=== PATIENT | male | born 1950 | race Caucasian/White ===

== ENCOUNTER → 2017-04-03 | Outpatient (CLI) | payer MEDICARE ==
[2017-04-03 10:00] LABS: EKG EKG PERFORMED
[2017-04-03 10:44] LABS: Basophils # (A) 0.1 k/uL (0-0.2); Basophils % (A) 1 %; CH 30.9; CHCM 32.8; Eosinophils # (A) 0.3 k/uL (0-0.7); Eosinophils % (A) 4 %; HCT 45.5 % (39.0-53.0); HGB 15.3 gm/dL (13.0-17.5); Luc # (Auto) 0.23; Luc % (Auto) 3; Lymphocytes # (A) 1.8 k/uL (1.0-4.8); Lymphocytes % (A) 19 %; MCH 31.8 pg (25.0-35.0); MCHC 33.5 g/dL (31.0-37.0); MCV 94.8 fL (80.0-100.0); Mean Platelet Volume 8.2; Monocytes # (A) 0.4 k/uL (0-1.0); Monocytes % (A) 5 %; Neutrophils # (A) 6.5 k/uL (1.3-7.7); Neutrophils % (A) 69 %; RDW 14.3 % (11.5-15.5); WBC 9.3 k/uL (3.8-10.6); WBC (Perox) 9.18
[2017-04-03 11:15] LABS: ALT 37 U/L (21-72); AST 29 U/L (17-59); Alkaline Phosphatase 113 U/L (38-126); Anion Gap 16 mmol/L; Blood Urea Nitrogen 38 mg/dL (9-20); Carbon Dioxide 19 mmol/L (22-30); Chloride 105 mmol/L (98-107); Glucose 161 mg/dL (74-99); Non-African American GFR(MDRD) 44 (>60 ml/min/1.73 sqM); Potassium 4.8 mmol/L (3.5-5.1); Sodium 140 mmol/L (137-145); Total Bilirubin 0.7 mg/dL (0.2-1.3); Total Protein 7.5 g/dL (6.3-8.2)
== END | disposition home or self-care (01) ==
LOC: LABPAT 09:50
PROVIDERS: ATTEND Anesthesiology
DX: C18.9 Malignant neoplasm of colon, unspecified (principal)
CPT/HCPCS: 80053; 82378; 85025; 93005

== ENCOUNTER 2017-04-05 08:37 | Inpatient (IN) | payer MEDICARE ==
--- NOTE | 2017-03-14 09:26 | HP ---
DATE OF ADMISSION: CHIEF COMPLAINT: Sigmoid colon cancer. HISTORY OF PRESENT ILLNESS: Patient is a 66-year-old male who is known to our service from previous bariatric evaluation. He was having complaints of frequent diarrhea for the last 6 months or so and started noticing rectal bleeding following that. Patient had a colonoscopy done in late January by Dr. Baxter and was found to have a mass at 24 to 28 cm, biopsy-proven moderately differentiated adenocarcinoma. Patient had a CAT scan performed at [facility] as well which did show with the malignancy without evidence of distant metastasis. Past medical history is arthritis, asthma, diabetes, hypertension, obesity. Past surgical history is hemorrhoidectomy, ablation. MEDICATIONS: See list. ALLERGIES: None. PHYSICAL EXAM: GENERAL: Well-developed, well-nourished, obese male in no distress. HEENT is normocephalic. Sclerae is nonicteric. CHEST: No deformities. ABDOMEN: Soft, nontender, nondistended. No palpable hernias. IMPRESSION: A 66-year-old male with newly diagnosed sigmoid colon cancer. PLAN: Will proceed with elective sigmoid colectomy on 04/05. The risks of bleeding, infection, anastomotic dehiscence, possible need for end or diverting ostomy, bladder or ureteral injury, bowel injury, hernia, wound infection, abscess, respiratory or cardiac complications. The patient understands and wishes to proceed.
[2017-04-02 11:41] VITALS: BMI 39.9
[~2017-04-05 08:37] MED LIST: ALVIMOPAN 12 MG CAPSULE PO ONE; DEXAMETHASONE SOD PHOSPHATE 10 MG/ML 1 ML VIAL IV ONE; HEPARIN SODIUM,PORCINE 5,000 UNIT/ML 1 ML VIAL SQ ONE; HYDROmorphone 1 MG/ML 1 ML SYRINGE IVP PRN; MIDAZOLAM 2 MG/2 ML VIAL IV PRN; ONDANSETRON 4 MG/2 ML VIAL IVP ONE; ceFAZolin 3 GM in SODIUM CHLORIDE 0.9% 100 ML IVPB ONE; metroNIDAZOLE-NS PMX 500 MG in SALINE 1 100ML.BAG IVPB ONE
[2017-04-05] MEDS ORDERED: LIDOCAINE 1% 20 ML VIAL (10MG/ML) FOR IV START SQ ONE (11:45)
[2017-04-05] MEDS: LACTATED RINGERS 1,000 ML IV SCH ×2 (11:45→18:32)
[2017-04-05 11:52] LABS: Glucose,Whole Blood 170 mg/dL (75-99)
[2017-04-05] MEDS ORDERED: ONDANSETRON 4 MG/2 ML VIAL IVP PRN (12:44)
[2017-04-05] MEDS ORDERED: diphenhydrAMINE 50 MG/ML 1 ML VIAL IVP PRN (12:44)
[2017-04-05] MEDS ORDERED: NALOXONE 0.4 MG/ML 1 ML VIAL IV PRN (12:44)
[2017-04-05] MEDS ORDERED: PROPOFOL 10 MG/ML 20 ML VIAL IV ONE (13:20)
[2017-04-05] MEDS ORDERED: NEOSTIGMINE 1 MG/ML 10 ML VIAL ONE (13:20)
[2017-04-05] MEDS ORDERED: MIDAZOLAM 2 MG/2 ML VIAL ONE (13:20)
[2017-04-05] MEDS ORDERED: SUCCINYLCHOLINE CHLORIDE 100 MG/5 ML SYR IV ONE (13:20)
[2017-04-05] MEDS ORDERED: ROCURONIUM BROMIDE 10 MG/ML 10 ML VIAL IV ONE (13:20)
[2017-04-05] MEDS ORDERED: LIDOCAINE 1% INJ 10MG/ML (20 ML MDV) ONE (13:20)
[2017-04-05] MEDS ORDERED: GLYCOPYRROLATE 0.2 MG/ML 2 ML VIAL ONE (13:20)
[2017-04-05] MEDS ORDERED: ePHEDrine 50 MG/ML 1 ML AMP ONE (13:20)
[2017-04-05] MEDS ORDERED: fentaNYL (PF) 50 MCG/ML 2 ML AMP ONE (13:20)
[2017-04-05] MEDS ORDERED: LACTATED RINGERS 1,000 ML IV ONE (15:15)
[2017-04-05] MEDS: BUPIVACAINE (PF) 0.5% 37.5 ML, HYDROMORPHONE (PF) 5 MG in SODIUM CHLORIDE 0.9% 212 ML EPIDURAL PRN ×2 (16:31→17:39)
[2017-04-05] MEDS ORDERED: HYDROmorphone 1 MG/ML 1 ML SYRINGE IVP PRN (16:36)
[2017-04-05] MEDS ORDERED: METOCLOPRAMIDE 5 MG/ML 2 ML VIAL IVP PRN (16:36)
--- NOTE | 2017-04-05 16:42 | P.OP ---
Date of Procedure: 04/05/17 Preoperative Diagnosis: Postoperative Diagnosis: Procedure(s) Performed: PREOPERATIVE DIAGNOSIS: Sigmoid colon cancer POSTOPERATIVE DIAGNOSIS: Sigmoid colon cancer PROCEDURE: Low anterior sigmoid resection SURGEON: Adis EBL: 180 mL ANESTHESIA: General COMPLICATIONS: None OPERATIVE PROCEDURE: Patient place in the operative table in the supine position. The patient was placed under general anesthesia. The patient was then placed in lithotomy. The abdomen was prepped and draped in usual sterile fashion. A vertical incision was made extending from the suprapubic pubic location to the supraumbilical location. The fascia was divided as well. The Bookwalter retractor was utilized. The patient's abdominal girth was very impressive. The extra long retractors were utilized throughout this case. The Bookwalter extension was utilized as well. The sigmoid colon was fully mobilized by incising the white line of Toldt. The left and right ureters were both identified and preserved. The sigmoid colon was divided proximally using a linear 75 stapler. The mesentery was divided using the LigaSure device. Larger vessels were divided using [address] down to the proximal rectum where the tenia was noted to splay out. The mass was present in the distal sigmoid colon approximately 8 cm from the rectum. The proximal rectum was divided using the contour stapler. The specimen was passed off the field at that point. The proximal staple line was dissected of any surrounding fat. The pursestring adapter was utilized. The staple line itself was then removed. Sizers were utilized. The 29 EEA was chosen. The anvil was advanced into the lumen of the bowel and the pursestring was tied down. The stapler was then inserted into the anus and brought up to the staple line. The obturator was brought out just anterior to the staple line. The 2 portions of the stapler were connected to one another and subsequently tightened and fired. The bowel was clamped proximal to the anastomosis. The rigid sigmoidoscope was utilized to fill the anastomotic site nicely with air. There was saline in the pelvis at this time. No evidence of leak was seen. The abdomen was irrigated with saline. The liver, stomach, visualized colon, and small bowel appeared normal. The midline fascia was then reapproximated using 2 separate double-stranded #1 PDS suture. The subcutaneous tissues were closed using 2-0 Vicryl sutures. The skin was then closed using rich. Sterile dressings were then applied. DISPOSITION: Stable to recovery room Implants: Indications for Procedure: Operative Findings: Description of Procedure:
[2017-04-05 17:20] LABS: Glucose,Whole Blood 173 mg/dL (75-99)
[2017-04-05] MEDS: INSULIN LISPRO (humaLOG) 300 UNIT/3 ML VIAL SQ SCH ×2 (18:34→21:13)
[2017-04-05] MEDS: IPRATROPIUM-ALBUTEROL 3 ML NEB INHALATION SCH (21:07)
[2017-04-05 21:08] LABS: Glucose,Whole Blood 203 mg/dL (75-99)
[2017-04-05] MEDS: ATORVASTATIN 20 MG TAB PO SCH (21:23)
[2017-04-05] MEDS: D5-0.45% NACL WITH KCL 20MEQ/L 1,000 ML IV SCH ×2 (21:23→23:25)
[2017-04-05] MEDS: FAMOTIDINE 20 MG/2 ML VIAL IV SCH (21:23)
[2017-04-05] MEDS: ATENOLOL 50 MG TAB PO SCH (21:23)
[2017-04-05] MEDS: HEPARIN SODIUM,PORCINE 5,000 UNIT/ML 1 ML VIAL SQ SCH (23:25)
[2017-04-06] MEDS: LACTATED RINGERS 1,000 ML IV SCH ×4 (05:13→23:31)
--- NOTE | 2017-04-06 06:54 | CONS ---
DATE OF CONSULTATION: CHIEF COMPLAINT: Medical re-evaluation. HISTORY OF PRESENT ILLNESS: This is a 66-year-old gentleman who was admitted to the hospital and undergone partial colectomy for sigmoid malignancy. The patient was evaluated in the outpatient for diarrhea and some blood in the stool. He has been noted to have evidence of a malignancy. CAT scan did not reveal any lymphadenopathy. The patient in view of this underwent surgery. He has significant COPD and has had previous history of atrial fibrillation, which has been well controlled. The patient is also moderately obese. The patient otherwise feels relatively well. Post surgery, his pain is adequately controlled. Past medical history is significant for history of hypertension on medical therapy, history of atrial fibrillation, rapid ventricular rate is controlled, history of COPD and history of diabetes mellitus. The patient also has moderate obesity. Past surgical history is significant for hemorrhoidectomy and previous ablation for atrial fibrillations. PERSONAL HISTORY: Patient has been a smoker for many years. Alcohol none. ALLERGIES: None reported. Medications at home includes: Metformin 1000 mg daily, Zantac 150 mg q. daily, losartan hydrochlorothiazide 100/25 one daily, Breo 100/25 one puff daily. Lipitor 20 mg daily. Atenolol 50 mg b.i.d., aspirin 81 mg daily, Tylenol Arthritis 650 mg 2 tabs b.i.d., Xanax 0.5 mg p.r.n. t.i.d. SOCIAL HISTORY: The patient is , lives alone. FAMILY MEDICAL HISTORY: One brother who has a history of atrial fibrillation and degenerative arthritis. The patient has 2 sons in good health. REVIEW OF SYSTEMS: NEURO: Denies any headaches, dizziness. No double vision, blurred vision. No symptoms of TIA, syncope, seizures. PSYCH: No anxiety, depression. CARDIAC: No chest pain, angina, palpitations. RESPIRATORY: Chronic shortness of breath, chronic cough. No hemoptysis. GI: No nausea, vomiting and some abdominal pain when he coughs. : No symptoms. Has an IDC. EXTREMITIES: Denies pain or edema. CONSTITUTIONAL: No fever or chills. HEMATOLOGICAL: No anemia or bleeding disorder. ENDOCRINE: History of diabetes mellitus, adequately controlled. PHYSICAL EXAMINATION: At present, vital signs reveal blood pressure was 121/65, pulse rate of 78, respirations 20, pulse ox 94% on 2 L. HEENT: Normocephalic. NECK: No JVD. CHEST EXAMINATION: Clear to auscultation with generalized decreased air flow. CARDIAC: Distant heart sounds. S1, S2 with no gallops. Systolic murmur 2/6 left sternal border. ABDOMEN: Protuberant, tender. Bowel sounds absent. Extremities reveal no edema. No tenderness. NEUROLOGIC: Awake, alert, oriented with well coordinated movements in both upper extremities. The patient moves lower extremities spontaneously too. LABORATORY ASSESSMENT: Blood sugars which are adequately covered. Potassium was 4.7. ASSESSMENT: 1. Diabetes mellitus, adequately controlled. 2. Chronic obstructive pulmonary disease. 3. History of atrial fibrillation, post ablation, controlled. 4. Cancer of the colon. 5. Obesity. 6. Hypertension. PLAN: Continue present medical regimen. The patient's hydrochlorothiazide losartan will be held. Will continue Tenormin. Monitor CBC. Patient's prognosis remains guarded. Condition discussed with the patient.
[2017-04-06 07:02] LABS: Glucose,Whole Blood 180 mg/dL (75-99)
[2017-04-06] MEDS: HEPARIN SODIUM,PORCINE 5,000 UNIT/ML 1 ML VIAL SQ SCH ×3 (07:07→23:30)
[2017-04-06 07:41] LABS: Basophils % (A) 0 %; CH 31.3; CHCM 33.7; Eosinophils % (A) 0 %; HCT 40.5 % (39.0-53.0); HDW 2.68; HGB 13.6 gm/dL (13.0-17.5); Luc # (Auto) 0.17; Luc % (Auto) 2; Lymphocytes # (A) 1.1 k/uL (1.0-4.8); Lymphocytes % (A) 9 %; MCH 31.4 pg (25.0-35.0); MCHC 33.6 g/dL (31.0-37.0); MCV 93.4 fL (80.0-100.0); Mean Platelet Volume 7.9; Monocytes # (A) 0.9 k/uL (0-1.0); Monocytes % (A) 8 %; Neutrophils # (A) 9.4 k/uL (1.3-7.7); Neutrophils % (A) 82 %; RBC 4.34 m/uL (4.30-5.90); RDW 14.2 % (11.5-15.5); WBC 11.5 k/uL (3.8-10.6); WBC (Perox) 10.82
[2017-04-06 07:55] LABS: Calcium 9.1 mg/dL (8.4-10.2); Potassium 5.1 mmol/L (3.5-5.1)
[2017-04-06] MEDS: INSULIN LISPRO (humaLOG) 300 UNIT/3 ML VIAL SQ SCH ×4 (07:58→20:55)
[2017-04-06] MEDS: ATENOLOL 50 MG TAB PO SCH ×2 (08:01→20:54)
[2017-04-06] MEDS: ALVIMOPAN 12 MG CAPSULE PO SCH ×2 (08:01→20:54)
[2017-04-06] MEDS: FAMOTIDINE 20 MG/2 ML VIAL IV SCH ×2 (08:01→20:53)
[2017-04-06] MEDS: ASPIRIN 81 MG CHEW PO SCH (08:01)
[2017-04-06 08:44] LABS: Hemoglobin A1C 6.8 % (4.2-6.1)
[2017-04-06] MEDS: IPRATROPIUM-ALBUTEROL 3 ML NEB INHALATION SCH ×4 (09:02→21:06)
[2017-04-06] MEDS: D5-0.45% NACL WITH KCL 20MEQ/L 1,000 ML IV SCH ×3 (09:25→23:30)
--- NOTE | 2017-04-06 11:36 | P.PN ---
Subjective Principal diagnosis: Colon cancer Patient doing well today. Mild discomfort. Some leg numbness. Creatinine slightly elevated from baseline. White blood cell count 11.5 hemoglobin stable at 13.6. Objective - Vital Signs Vital signs: Vital Signs Temp 98.9 F 04/05/17 23:00 Pulse 88 04/06/17 09:13 Resp 14 04/06/17 07:13 BP 106/66 04/05/17 23:00 Pulse Ox 92 L 04/06/17 09:03 Intake & Output 04/05/17 04/06/17 04/06/17 18:59 06:59 18:59 Intake Total 2913.6 600 600 Output Total 455 300 Balance 2458.6 300 600 Intake: IV 2913.6 Oral 600 600 Output: Urine 275 300 Estimated Blood Loss 180 Other: Voiding Method Indwelling Catheter Indwelling Catheter # Voids 1 - Exam Abdomen: Soft, nondistended, incision clean and dry, mild tenderness - Labs CBC & Chem 7: 04/06/17 07:13 04/06/17 07:13 Labs: Abnormal Lab Results - Last 24 Hours (Table) 04/05/17 04/05/17 04/05/17 Range/Units 11:44 17:00 21:06 WBC (3.8-10.6) k/uL Neutrophils # (1.3-7.7) k/uL Sodium (137-145) mmol/L Carbon Dioxide (22-30) mmol/L BUN (9-20) mg/dL Creatinine (0.66-1.25) mg/dL Glucose (74-99) mg/dL POC Glucose (mg/dL) 170 H 173 H 203 H (75-99) mg/dL Hemoglobin A1c (4.2-6.1) % 04/06/17 04/06/17 04/06/17 Range/Units 06:56 07:13 07:13 WBC 11.5 H (3.8-10.6) k/uL Neutrophils # 9.4 H (1.3-7.7) k/uL Sodium 136 L (137-145) mmol/L Carbon Dioxide 19 L (22-30) mmol/L BUN 37 H (9-20) mg/dL Creatinine 1.76 H (0.66-1.25) mg/dL Glucose 174 H (74-99) mg/dL POC Glucose (mg/dL) 180 H (75-99) mg/dL Hemoglobin A1c (4.2-6.1) % 04/06/17 Range/Units 07:13 WBC (3.8-10.6) k/uL Neutrophils # (1.3-7.7) k/uL Sodium (137-145) mmol/L Carbon Dioxide (22-30) mmol/L BUN (9-20) mg/dL Creatinine (0.66-1.25) mg/dL Glucose (74-99) mg/dL POC Glucose (mg/dL) (75-99) mg/dL Hemoglobin A1c 6.8 H (4.2-6.1) % Assessment and Plan (1) Cancer of sigmoid colon Narrative/Plan: Keep on a clear liquid diet for now. Gradually increase activity levels. Repeat lab work tomorrow. Status: Acute
[2017-04-06 11:44] LABS: Glucose,Whole Blood 169 mg/dL (75-99)
[2017-04-06] MEDS: BUPIVACAINE (PF) 0.5% 37.5 ML, HYDROMORPHONE (PF) 5 MG in SODIUM CHLORIDE 0.9% 212 ML EPIDURAL PRN (16:33)
[2017-04-06 16:53] LABS: Glucose,Whole Blood 143 mg/dL (75-99)
[2017-04-06 20:04] LABS: Glucose,Whole Blood 146 mg/dL (75-99)
[2017-04-06] MEDS: ATORVASTATIN 20 MG TAB PO SCH (20:54)
[2017-04-07] MEDS: ALPRAZolam 0.25 MG TAB PO PRN (00:08)
[2017-04-07 06:28] LABS: Basophils % (A) 0 %; Eosinophils # (A) 0.1 k/uL (0-0.7); Eosinophils % (A) 1 %; HCT 38.8 % (39.0-53.0); HDW 2.61; HGB 12.7 gm/dL (13.0-17.5); Luc # (Auto) 0.16; Luc % (Auto) 2; Lymphocytes # (A) 1.5 k/uL (1.0-4.8); Lymphocytes % (A) 15 %; MCH 30.9 pg (25.0-35.0); MCHC 32.7 g/dL (31.0-37.0); MCV 94.5 fL (80.0-100.0); Mean Platelet Volume 7.8; Monocytes # (A) 0.7 k/uL (0-1.0); Monocytes % (A) 7 %; Neutrophils # (A) 7.7 k/uL (1.3-7.7); Neutrophils % (A) 76 %; RDW 14.3 % (11.5-15.5); WBC 10.1 k/uL (3.8-10.6)
[2017-04-07 06:55] LABS: Glucose,Whole Blood 126 mg/dL (75-99)
--- NOTE | 2017-04-07 07:34 | PN ---
HISTORY OF PRESENT ILLNESS: This 66-year-old gentleman was admitted to the hospital and underwent partial colectomy. He has carcinoma of the colon. The patient also has underlying history of diabetes mellitus, chronic obstructive pulmonary disease and previous history of atrial fibrillation with no recurrence. REVIEW OF SYSTEMS: NEURO: Denies any headaches, dizziness. PSYCH: Anxiety. CARDIAC: No chest pain, angina, palpitation. RESPIRATORY: Denies shortness of breath. Does have some cough. No hemoptysis. GI: No nausea, vomiting, abdominal pain, diarrhea. No bowel movement. : No symptoms. Has IDC. EXTREMITIES: No pain or edema. CONSTITUTIONAL: No fever or chills. PHYSICAL EXAMINATION: Pleasant gentleman in no distress. Vital signs reveal temperature afebrile. Recorded vital signs are stable. HEENT: Normocephalic. NECK: No JVD. Chest is clear to auscultation with decreased air flow at the bases CARDIAC: Distant heart sounds. S1, S2 with no gallops. Regular rhythm. Systolic murmur 2/6 left sternal border. ABDOMEN: Mildly tender, mildly protuberant, absent bowel sounds. EXTREMITIES: Reveal no edema. No tenderness. NEUROLOGIC: Awake, alert, oriented with well coordinated movements. LABORATORY ASSESSMENT: CBC shows a hemoglobin 13.6, white count 11.5, CO2 19, BUN 37, creatinine 1.76, glucose 174. A1c was 6.8. ASSESSMENT: 1. Diabetes mellitus, adequately controlled. 2. Chronic kidney disease III. 3. Chronic obstructive pulmonary disease. 4. Status post partial colectomy for carcinoma of the colon. PLAN: Continue present medical regimen. The patient's condition discussed with the patient. Prognosis guarded. Patient will be continued at atenolol and insulin coverage. Losartan is on hold.
[2017-04-07 08:13] LABS: Anion Gap 9 mmol/L; Blood Urea Nitrogen 26 mg/dL (9-20); Carbon Dioxide 24 mmol/L (22-30); Chloride 104 mmol/L (98-107); Glucose 124 mg/dL (74-99); Non-African American GFR(MDRD) 52 (>60 ml/min/1.73 sqM); Potassium 4.4 mmol/L (3.5-5.1); Sodium 137 mmol/L (137-145)
[2017-04-07] MEDS: ASPIRIN 81 MG CHEW PO SCH (08:13)
[2017-04-07] MEDS: HEPARIN SODIUM,PORCINE 5,000 UNIT/ML 1 ML VIAL SQ SCH ×3 (08:13→23:53)
[2017-04-07] MEDS: ALVIMOPAN 12 MG CAPSULE PO SCH ×2 (08:13→20:55)
[2017-04-07] MEDS: ATENOLOL 50 MG TAB PO SCH ×2 (08:13→20:55)
[2017-04-07] MEDS: FAMOTIDINE 20 MG/2 ML VIAL IV SCH (08:13)
[2017-04-07] MEDS: D5-0.45% NACL WITH KCL 20MEQ/L 1,000 ML IV SCH ×3 (08:22→20:57)
[2017-04-07] MEDS: IPRATROPIUM-ALBUTEROL 3 ML NEB INHALATION SCH ×4 (09:48→21:24)
[2017-04-07] MEDS: INSULIN LISPRO (humaLOG) 300 UNIT/3 ML VIAL SQ SCH ×4 (09:51→20:59)
--- NOTE | 2017-04-07 11:08 | P.PN ---
Subjective Principal diagnosis: Colon cancer Patient with some shortness of breath today. He has a history of underlying COPD. He states that he usually is able to cough in the morning but because of his abdominal discomfort which is improved from yesterday he is finding it hard to bring up some of the sputum. No bowel function. No nausea or vomiting. He is afebrile. White blood cell count is normal. Objective - Vital Signs Vital signs: Vital Signs Temp 98.9 F 04/07/17 00:57 Pulse 80 04/07/17 10:08 Resp 14 04/07/17 08:00 BP 122/66 04/07/17 00:57 Pulse Ox 92 L 04/07/17 00:57 Intake & Output 04/06/17 04/07/17 04/07/17 18:59 06:59 18:59 Intake Total 1000 Output Total 1300 1400 Balance -300 -1400 Intake: Oral 1000 Output: Urine 1300 1400 Uretheral (Stein) 1400 Other: Voiding Method Indwelling Catheter Indwelling Catheter Indwelling Catheter - Exam Abdomen: Soft, nondistended, mild tenderness, dressing intact - Labs CBC & Chem 7: 04/07/17 06:20 04/07/17 06:20 Labs: Abnormal Lab Results - Last 24 Hours (Table) 04/06/17 04/06/17 04/06/17 Range/Units 11:41 16:50 20:02 RBC (4.30-5.90) m/uL Hgb (13.0-17.5) gm/dL Hct (39.0-53.0) % BUN (9-20) mg/dL Creatinine (0.66-1.25) mg/dL Glucose (74-99) mg/dL POC Glucose (mg/dL) 169 H 143 H 146 H (75-99) mg/dL 04/07/17 04/07/17 04/07/17 Range/Units 06:20 06:20 06:51 RBC 4.10 L (4.30-5.90) m/uL Hgb 12.7 L (13.0-17.5) gm/dL Hct 38.8 L (39.0-53.0) % BUN 26 H (9-20) mg/dL Creatinine 1.37 H (0.66-1.25) mg/dL Glucose 124 H (74-99) mg/dL POC Glucose (mg/dL) 126 H (75-99) mg/dL Assessment and Plan (1) Cancer of sigmoid colon Narrative/Plan: Advance to full liquids. Decrease IV fluid rate. Pulmonary support. Status: Acute
[2017-04-07 11:27] LABS: Glucose,Whole Blood 118 mg/dL (75-99)
--- NOTE | 2017-04-07 14:11 | P.PN ---
Subjective Principal diagnosis: Carcinoma Of sigmoid colon History present illness and hospital course. This 66-year-old gentleman was admitted to the hospital after outpatient evaluation which revealed that he has a sigmoid colon malignancy. Following admission he underwent partial colectomy. He is doing fairly well he has not passed any gas however is feeling some rumblings in his belly. He has had no vomiting. Abdominal pain adequately controlled. Has a Stein catheter in place with no symptoms. Patient appetite fair intake fair. Patient does have a history of COPD and has some increase respiratory congestion. He normally takes Mucinex at home with help. Patient is an updraft and inspiratory spirometry here. Patient also on prophylaxis for GI as well as DVT patient has history of hypertension, blood pressures controlled history of diabetes mellitus and blood sugars covered. REVIEW OF SYSTEMS: Neuro: Denies any headaches dizziness. Psych: Denies anxiety depression feels oriented. Cardiac: Denies chest pain and angina palpitations. Respiratory: Denies shortness of breath, does have some cough and congestion. GI: Denies nausea vomiting. Has some tolerable abdominal pain. No bowel movement has not passed any flatus. Tolerating oral intake : Has IDC with no symptoms of dysuria or hematuria Extremities: Denies pain. No edema. Skin: Intact. Constitutional: No fever, chills. Objective - Vital Signs Vital signs: Vital Signs Temp 98.9 F 04/07/17 00:57 Pulse 80 04/07/17 10:08 Resp 14 04/07/17 08:00 BP 122/66 04/07/17 00:57 Pulse Ox 92 L 04/07/17 00:57 Intake & Output 04/06/17 04/07/17 04/07/17 18:59 06:59 18:59 Intake Total 1000 Output Total 1300 1400 Balance -300 -1400 Intake: Oral 1000 Output: Urine 1300 1400 Uretheral (Stein) 1400 Other: Voiding Method Indwelling Catheter Indwelling Catheter Indwelling Catheter PHYSICAL EXAMINATION: Cooperative, at present in no acute distress. HEENT: Neck supple. No JVD. Chest: Clear to auscultation with generalized decreased airflow, rhonchi which cleared with coughing Cardiac: Normal S1-S2 no gallops systolic murmur 2/6 left sternal border. Abdomen: Mildly tender distended faint bowel sounds present Extremities: No edema no tenderness Neurologically: Awake, alert, oriented with well-coordinated movements. - Labs CBC & Chem 7: 04/07/17 06:20 04/07/17 06:20 Labs: Abnormal Lab Results - Last 24 Hours (Table) 04/06/17 04/06/17 04/07/17 Range/Units 16:50 20:02 06:20 RBC 4.10 L (4.30-5.90) m/uL Hgb 12.7 L (13.0-17.5) gm/dL Hct 38.8 L (39.0-53.0) % BUN (9-20) mg/dL Creatinine (0.66-1.25) mg/dL Glucose (74-99) mg/dL POC Glucose (mg/dL) 143 H 146 H (75-99) mg/dL 04/07/17 04/07/17 04/07/17 Range/Units 06:20 06:51 11:23 RBC (4.30-5.90) m/uL Hgb (13.0-17.5) gm/dL Hct (39.0-53.0) % BUN 26 H (9-20) mg/dL Creatinine 1.37 H (0.66-1.25) mg/dL Glucose 124 H (74-99) mg/dL POC Glucose (mg/dL) 126 H 118 H (75-99) mg/dL Assessment and Plan Plan: ASSESSMENT: 1. Hypertension controlled. 2. COPD stable. 3. Status post abdominal surgery for partial colectomy. 4. Acute on chronic renal failure improved. 5. Diabetes mellitus adequately controlled. 6. Remote history of atrial fibrillation post-ablation in sinus rhythm now. 7. Obesity. PLAN: Continue present medical regimen as ordered. We will add Mucinex to his regimen. Still holding losartan hydrochlorothiazide. Encouraged activity.
[2017-04-07 17:29] LABS: Glucose,Whole Blood 121 mg/dL (75-99)
--- NOTE | 2017-04-07 18:21 | P.PN ---
Progress Note - Text post op day #2 atatus post low anterior resection, epidural catheter placed for postoperative analgesia, vital signs stable, patient currently on epidural infusion at 8 ml per hour combination infusion of bupivacaine/Dilaudid, patient being controlled adequately during greatest, had increased pain with coughing and deep breathing, there is no motor deficit, I will keep the infusion at the same rate but I will start patient on morphine 2 mg IV every one hours for breakthrough pain and this. This will help him to cough , and to do incentive spirometry
[2017-04-07 20:00] LABS: Glucose,Whole Blood 134 mg/dL (75-99)
[2017-04-07] MEDS: ATORVASTATIN 20 MG TAB PO SCH (20:55)
[2017-04-07] MEDS: FAMOTIDINE 20 MG TAB PO SCH (20:55)
[2017-04-07] MEDS: guaiFENesin 600 MG TABLET.ER PO SCH (20:56)
[2017-04-08] MEDS: BUPIVACAINE (PF) 0.5% 37.5 ML, HYDROMORPHONE (PF) 5 MG in SODIUM CHLORIDE 0.9% 212 ML EPIDURAL PRN (00:01)
[2017-04-08] MEDS: LACTATED RINGERS 1,000 ML IV SCH ×2 (01:10)
[2017-04-08] MEDS: ALPRAZolam 0.25 MG TAB PO PRN ×2 (03:13→21:04)
[2017-04-08] MEDS ORDERED: MORPHINE SULFATE 2 MG/ML SYRINGE IVP PRN (06:36)
[2017-04-08 06:49] LABS: Glucose,Whole Blood 138 mg/dL (75-99)
[2017-04-08 07:22] LABS: Basophils # (A) 0.1 k/uL (0-0.2); Basophils % (A) 0 %; CH 30.9; Eosinophils # (A) 0.1 k/uL (0-0.7); Eosinophils % (A) 1 %; HCT 40.3 % (39.0-53.0); HGB 13.1 gm/dL (13.0-17.5); Luc # (Auto) 0.17; Luc % (Auto) 2; Lymphocytes # (A) 1.5 k/uL (1.0-4.8); Lymphocytes % (A) 15 %; MCH 30.7 pg (25.0-35.0); MCHC 32.5 g/dL (31.0-37.0); MCV 94.3 fL (80.0-100.0); Mean Platelet Volume 7.8; Monocytes # (A) 0.7 k/uL (0-1.0); Monocytes % (A) 7 %; Neutrophils # (A) 8.1 k/uL (1.3-7.7); Neutrophils % (A) 76 %; RBC 4.28 m/uL (4.30-5.90); RDW 14.3 % (11.5-15.5); WBC 10.7 k/uL (3.8-10.6); WBC (Perox) 10.74
[2017-04-08 07:35] LABS: Calcium 8.9 mg/dL (8.4-10.2); Potassium 4.6 mmol/L (3.5-5.1)
[2017-04-08] MEDS: IPRATROPIUM-ALBUTEROL 3 ML NEB INHALATION SCH ×4 (08:20→20:03)
[2017-04-08] MEDS ORDERED: TAMSULOSIN 0.4 MG CAP.ER.24H PO STA (10:29)
--- NOTE | 2017-04-08 10:29 | P.PN ---
Subjective Principal diagnosis: Colon cancer Patient complaining of irritation at the urethral insertion site of his Stein catheter. He did have some hematuria noted in the Stein catheter today. Denies any significant abdominal pain. He is passing flatus. His breathing is improved today. White blood cell count stable. He is afebrile. Objective - Vital Signs Vital signs: Vital Signs Temp 97.8 F 04/08/17 01:16 Pulse 88 04/08/17 01:16 Resp 16 04/08/17 01:16 BP 114/55 04/08/17 01:16 Pulse Ox 93 L 04/08/17 01:16 Intake & Output 04/07/17 04/08/17 04/08/17 18:59 06:59 18:59 Intake Total 250 Output Total 900 Balance -650 Intake: Intake, IV Titration 250 Amount Bupivacaine (Pf) 0.5% 37. 250 5 ml Hydromorphone (Pf) 5 mg In Sodium Chloride 0. 9% 212 ml @ Per Protocol EPIDURAL .Q0M PRN Rx#: [id number] Output: Urine 900 Uretheral (Stein) 900 Other: Voiding Method Indwelling Catheter Indwelling Catheter - Exam Abdomen: Soft, nondistended, incision clean and dry, mild tenderness - Labs CBC & Chem 7: 04/08/17 06:25 04/08/17 06:25 Labs: Abnormal Lab Results - Last 24 Hours (Table) 04/07/17 04/07/17 04/07/17 Range/Units 11:23 17:03 19:58 WBC (3.8-10.6) k/uL RBC (4.30-5.90) m/uL Neutrophils # (1.3-7.7) k/uL Sodium (137-145) mmol/L BUN (9-20) mg/dL Creatinine (0.66-1.25) mg/dL Glucose (74-99) mg/dL POC Glucose (mg/dL) 118 H 121 H 134 H (75-99) mg/dL 04/08/17 04/08/17 04/08/17 Range/Units 06:25 06:25 06:46 WBC 10.7 H (3.8-10.6) k/uL RBC 4.28 L (4.30-5.90) m/uL Neutrophils # 8.1 H (1.3-7.7) k/uL Sodium 136 L (137-145) mmol/L BUN 26 H (9-20) mg/dL Creatinine 1.47 H (0.66-1.25) mg/dL Glucose 130 H (74-99) mg/dL POC Glucose (mg/dL) 138 H (75-99) mg/dL Assessment and Plan (1) Cancer of sigmoid colon Narrative/Plan: We'll remove the epidural catheter. I did discuss the case with urology by phone. They advised removing the Stein catheter. They suggested no additional workup necessary as long as no hematuria recurs. We'll advance diet to soft for tomorrow. Status: Acute
[2017-04-08] MEDS: INSULIN LISPRO (humaLOG) 300 UNIT/3 ML VIAL SQ SCH ×4 (10:48→21:03)
[2017-04-08] MEDS: HEPARIN SODIUM,PORCINE 5,000 UNIT/ML 1 ML VIAL SQ SCH ×2 (10:54→18:34)
[2017-04-08] MEDS: guaiFENesin 600 MG TABLET.ER PO SCH ×2 (10:55→20:19)
[2017-04-08] MEDS: ATENOLOL 50 MG TAB PO SCH ×2 (10:55→20:19)
[2017-04-08] MEDS: ALVIMOPAN 12 MG CAPSULE PO SCH ×2 (10:55→20:19)
[2017-04-08] MEDS: FAMOTIDINE 20 MG TAB PO SCH ×2 (10:55→20:19)
[2017-04-08] MEDS: ASPIRIN 81 MG CHEW PO SCH (10:55)
[2017-04-08] MEDS: KETOROLAC 30 MG/ML 1 ML VIAL IVP SCH ×2 (10:55→18:33)
[2017-04-08 11:20] LABS: Glucose,Whole Blood 142 mg/dL (75-99)
[2017-04-08 17:13] LABS: Glucose,Whole Blood 139 mg/dL (75-99)
[2017-04-08] MEDS ORDERED: FUROSEMIDE 40 MG TAB PO STA (19:41)
--- NOTE | 2017-04-08 19:41 | P.PN ---
Subjective Principal diagnosis: Carcinoma Of sigmoid colon History present illness and hospital course. This 66-year-old gentleman was admitted to the hospital after outpatient evaluation which revealed that he has a sigmoid colon malignancy. Following admission he underwent partial colectomy. He is doing fairly well he has not passed any stool but has been passing flatus . He has had no vomiting. Abdominal pain adequately controlled. Stein catheter removed, epidural removed. Patient appetite fair intake fair. Patient does have a history of COPD and has some improved respiratory congestion. He normally takes Mucinex at home with help. Patient is an updraft and inspiratory spirometry here. Patient also on prophylaxis for GI as well as DVT patient has history of hypertension, blood pressures controlled history of diabetes mellitus and blood sugars covered. REVIEW OF SYSTEMS: Neuro: Denies any headaches dizziness. Psych: Denies anxiety depression feels oriented. Cardiac: Denies chest pain and angina palpitations. Respiratory: Denies shortness of breath, does have some cough and congestion. GI: Denies nausea vomiting. Has some tolerable abdominal pain. No bowel movement has passed flatus. Tolerating oral intake : no symptoms of dysuria or hematuria Extremities: Denies pain. has edema. Skin: Intact. Constitutional: No fever, chills. Objective - Vital Signs Vital signs: Vital Signs Temp 98.2 F 04/08/17 18:48 Pulse 90 04/08/17 18:48 Resp 16 04/08/17 18:48 BP 124/55 04/08/17 18:48 Pulse Ox 98 04/08/17 18:48 Intake & Output 04/08/17 04/08/17 04/09/17 06:59 18:59 06:59 Intake Total 250 520 Output Total 900 495 Balance -650 25 Intake: Intake, IV Titration 250 400 Amount Bupivacaine (Pf) 0.5% 37. 250 5 ml Hydromorphone (Pf) 5 mg In Sodium Chloride 0. 9% 212 ml @ Per Protocol EPIDURAL .Q0M PRN Rx#: [id number] D5-0.45% NaCl with KCl 400 20Meq/l 1,000 ml @ 50 mls /hr IV .Q20H SAMEERA Rx#: [id number] Oral 120 Output: Urine 900 450 Uretheral (Stein) 900 350 Post Void Residual 45 Other: Voiding Method Indwelling Catheter Indwelling Catheter # Voids 2 PHYSICAL EXAMINATION: Cooperative, at present in no acute distress. HEENT: [Neck supple. No JVD.] Chest: [Clear to auscultation with generalized decreased airflow and rhonchi clearing on cough Cardiac: [Normal S1-S2] [no gallops] [no murmur ]. Abdomen:[ mildly tender][bowel sounds present.] Extremities: [1+ edema] [no tenderness ] Neurologically: [Awake, alert, oriented with well-coordinated movements.] - Labs CBC & Chem 7: 04/08/17 06:25 04/08/17 06:25 Labs: Abnormal Lab Results - Last 24 Hours (Table) 04/07/17 04/08/17 04/08/17 Range/Units 19:58 06:25 06:25 WBC 10.7 H (3.8-10.6) k/uL RBC 4.28 L (4.30-5.90) m/uL Neutrophils # 8.1 H (1.3-7.7) k/uL Sodium 136 L (137-145) mmol/L BUN 26 H (9-20) mg/dL Creatinine 1.47 H (0.66-1.25) mg/dL Glucose 130 H (74-99) mg/dL POC Glucose (mg/dL) 134 H (75-99) mg/dL 04/08/17 04/08/17 04/08/17 Range/Units 06:46 11:14 17:08 WBC (3.8-10.6) k/uL RBC (4.30-5.90) m/uL Neutrophils # (1.3-7.7) k/uL Sodium (137-145) mmol/L BUN (9-20) mg/dL Creatinine (0.66-1.25) mg/dL Glucose (74-99) mg/dL POC Glucose (mg/dL) 138 H 142 H 139 H (75-99) mg/dL Assessment and Plan Plan: ASSESSMENT: 1. Hypertension controlled. 2. COPD stable. 3. Status post abdominal surgery for partial colectomy. 4. Acute on chronic renal failure improved. 5. Diabetes mellitus adequately controlled. 6. Remote history of atrial fibrillation post-ablation in sinus rhythm now. 7. Obesity. PLAN: Continue present medical regimen as ordered. . Still holding losartan hydrochlorothiazide. Encouraged activity.may give him a dose of Lasix in the morning
[2017-04-08] MEDS: ATORVASTATIN 20 MG TAB PO SCH (20:19)
[2017-04-08 21:12] LABS: Glucose,Whole Blood 160 mg/dL (75-99)
[2017-04-09] MEDS: KETOROLAC 30 MG/ML 1 ML VIAL IVP SCH ×3 (00:03→11:55)
[2017-04-09] MEDS: D5-0.45% NACL WITH KCL 20MEQ/L 1,000 ML IV SCH (00:04)
[2017-04-09] MEDS: HEPARIN SODIUM,PORCINE 5,000 UNIT/ML 1 ML VIAL SQ SCH ×2 (00:04→07:51)
[2017-04-09] MEDS: LACTATED RINGERS 1,000 ML IV SCH ×2 (00:05)
[2017-04-09 07:16] LABS: Glucose,Whole Blood 139 mg/dL (75-99)
[2017-04-09 07:22] LABS: Basophils # (A) 0.1 k/uL (0-0.2); Basophils % (A) 1 %; CH 31.4; CHCM 33.2; Eosinophils # (A) 0.2 k/uL (0-0.7); Eosinophils % (A) 3 %; HCT 37.5 % (39.0-53.0); HDW 2.57; HGB 12.1 gm/dL (13.0-17.5); Luc # (Auto) 0.17; Luc % (Auto) 2; Lymphocytes # (A) 1.2 k/uL (1.0-4.8); Lymphocytes % (A) 15 %; MCH 30.6 pg (25.0-35.0); MCHC 32.2 g/dL (31.0-37.0); Mean Platelet Volume 8.1; Monocytes # (A) 0.4 k/uL (0-1.0); Monocytes % (A) 5 %; Neutrophils % (A) 75 %; RBC 3.95 m/uL (4.30-5.90); RDW 14.1 % (11.5-15.5); WBC (Perox) 8.36
[2017-04-09 07:50] VITALS: BP 143/80; RESP 16; TEMP 97.7
[2017-04-09] MEDS: guaiFENesin 600 MG TABLET.ER PO SCH (07:52)
[2017-04-09] MEDS: ASPIRIN 81 MG CHEW PO SCH (07:52)
[2017-04-09] MEDS: ALVIMOPAN 12 MG CAPSULE PO SCH (07:52)
[2017-04-09] MEDS: ATENOLOL 50 MG TAB PO SCH (07:52)
[2017-04-09] MEDS: FAMOTIDINE 20 MG TAB PO SCH (07:52)
[2017-04-09 08:07] LABS: Calcium 8.7 mg/dL (8.4-10.2); Potassium 4.3 mmol/L (3.5-5.1)
[2017-04-09] MEDS: INSULIN LISPRO (humaLOG) 300 UNIT/3 ML VIAL SQ SCH ×2 (08:22→13:23)
[2017-04-09] MEDS: IPRATROPIUM-ALBUTEROL 3 ML NEB INHALATION SCH ×2 (08:29→11:18)
[2017-04-09] MEDS ORDERED: FUROSEMIDE 40 MG TAB PO SCH (09:00)
[2017-04-09 11:32] LABS: Glucose,Whole Blood 185 mg/dL (75-99)
[2017-04-09 11:35] VITALS: PULSE 82
--- NOTE | 2017-04-09 13:09 | P.DS ---
Providers Date of admission: 04/05/17 11:07 Expected date of discharge: 04/09/17 Attending physician: Rigoberto Arceo Consults: 04/05/17 16:39 Consult Physician Routine Consulting Provider: Daljit Strong Consult Reason/Comments: Medical management Do you want consulting provider notified?: Yes Primary care physician: Daljit Strong - Discharge Diagnosis(es) (1) Cancer of sigmoid colon Patient was last for elective sigmoid resection. The patient has a sigmoid colon tumor that was resected. Postoperatively the patient has done well. His diet was gradually advanced as tolerated. His pain was well- controlled. He actually had more discomfort from his Stein catheter. He did have an episode of hematuria the day or 2 after Stein catheter insertion thought to be likely related to trauma. That has since resolved. Patient is having bowel function. His pain is minimal. He would like to go home today. He has been cleared from a medical standpoint. He will follow up me in the office in one week. His incision is clean and dry. Current Visit: Yes Status: Acute Plan - Discharge Summary New Discharge Prescriptions: HYDROcodone/APAP 5-325MG [[place] 5-325] 1 tab PO Q4HR PRN #40 tab PRN Reason: Pain Discharge Medication List ALPRAZolam [Xanax] 0.25 mg PO TID PRN 04/02/17 [History] Acetaminophen [Tylenol Arthritis] 1,300 mg PO BID 04/02/17 [History] Aspirin [Adult Low Dose Aspirin EC] 81 mg PO DAILY 04/02/17 [History] Atenolol [Tenormin] 50 mg PO BID 04/02/17 [History] Atorvastatin [Lipitor] 20 mg PO HS 04/02/17 [History] Fluticasone/Vilanterol [Breo Ellipta 100-25 Mcg Inhaler] 1 puff INHALATION RT- DAILY 04/02/17 [History] Losartan/Hydrochlorothiazide [Losartan-Hctz 100-25 mg Tab] 1 tab PO DAILY [History] Ranitidine HCl [Zantac] 150 mg PO QAM 04/02/17 [History] metFORMIN HCL 1,000 mg PO PC-SUPPER 04/02/17 [History] HYDROcodone/APAP 5-325MG [[place] 5-325] 1 tab PO Q4HR PRN #40 tab 04/09/17 [Rx] Follow up Appointment(s)/Referral(s): Rigoberto Arceo MD [Medical Doctor] - 1 Week [facility], [NON-STAFF] - 1 Week Patient Instructions/Handouts: Low Fiber Diet (DC), Colectomy (DC)
== END 2017-04-09 15:12 | disposition home or self-care (01) | DRG 330 ==
LOC: 2ORWHC 11:07 → 3SUR 16:49
PROVIDERS: ADMIT Surgery; ATTEND Surgery
PROC: 0DTN0ZZ Resection of Sigmoid Colon, Open Approach (ICD-10-PCS; principal; 2017-04-05 13:00)
DX: C18.7 Malignant neoplasm of sigmoid colon (principal); N17.9 Acute kidney failure, unspecified; Z68.41 Body mass index [BMI] 40.0-44.9, adult; E11.22 Type 2 diabetes mellitus with diabetic chronic kidney disease; J44.9 Chronic obstructive pulmonary disease, unspecified; N18.3 Chronic kidney disease, stage 3 (moderate); I12.9 Hypertensive chronic kidney disease with stage 1 through stage 4 chronic kidney disease, or unspecified chronic kidney disease; R31.9 Hematuria, unspecified; E66.9 Obesity, unspecified; F41.9 Anxiety disorder, unspecified; R01.1 Cardiac murmur, unspecified; R20.0 Anesthesia of skin; M19.90 Unspecified osteoarthritis, unspecified site; F17.200 Nicotine dependence, unspecified, uncomplicated; Z79.84 Long term (current) use of oral hypoglycemic drugs; Z79.82 Long term (current) use of aspirin; Z82.49 Family history of ischemic heart disease and other diseases of the circulatory system; Z79.51 Long term (current) use of inhaled steroids; Z79.899 Other long term (current) drug therapy; Z86.79 Personal history of other diseases of the circulatory system
CPT/HCPCS: 80048; 80053; 82378; 83036; 84132; 85025; 86850; 86900; 86901; 88309; 93005; 94640; 94760